=== PATIENT | male | born 1980 | race Caucasian/White ===

== ENCOUNTER 2022-02-03 09:11 | Emergency (ER) | payer BC, SELFPAY ==
--- NOTE | ~2022-02-03 | XR_ITS ---
EXAMINATION: XR tibia fibula LT 2V DATE: 02/03/2022 09:39 INDICATION: Left lower leg injury. TECHNIQUE: 2 views of left tibia and fibula on 4 radiographs were obtained. COMPARISON: None. FINDINGS: Bone alignment is normal. No fracture. There is mild osteoarthritis of medial and patellofe moral compartments of the knee. There is mild ankle joint osteoarthritis. There is an enthesophyte at posterior aspect of calcaneal tuberosity. No knee joint effusion. IMPRESSION: 1. Mild polyarticular osteoarthritis. Reviewed, dictated and finalized at location A.
[2022-02-03 09:20] VITALS: BP 124/80; PULSE 82; RESP 12; TEMP 36.8; O2SAT 100
--- NOTE | 2022-02-03 09:40 | ED.LOWEXIN ---
HPI - Extremity Injury (Lower) General Chief Complaint: Extremity Injury, Lower Stated Complaint: Left Leg Pain Time Seen by Provider: 02/03/22 09:40 Source: patient Mode of arrival: ambulatory Limitations: no limitations History of Present Illness HPI Narrative: 41-year-old male presented for complaint of left carrasquillo pain after injury 2 days ago. Endorses scabbed area with surrounding redness. He states he was on a float trip, cut his carrasquillo on a rock and now endorses pain with weightbearing. States he was unable to clean the site at the onset. Pain 5/10 at rest and 8/10 with ambulating. Last tetanus over 5 years. Related Data Allergies Allergy/AdvReac Type Severity Reaction Status Date / Time No Known Allergies Allergy Verified 02/03/22 09:39 Review of Systems Review of Systems: CONSTITUTIONAL: Denies body aches, fever, chills EYES: Denies visual changes CARDIOVASCULAR: Denies chest pain RESPIRATORY: Denies cough or dyspnea. GASTROINTESTINAL: Denies abdominal pain, nausea, vomiting, or diarrhea. SKIN: Reports wound left carrasquillo MUSCULOSKELETAL: Denies back pain, joint pain, or myalgia. NEUROLOGIC: Denies headache, numbness, tingling, or weakness. All systems reviewed & are unremarkable except as noted in HPI and below PMFSH Family History Family History Other Diabetes mellitus Family history of cardiovascular disease Family history of malignant neoplasm Hypertension Social History Social History Smoking status: Never smoker Alcohol intake: current Comments At time of signature, I have reviewed and agree with nursing past medical, surgical, social and family history unless otherwise noted. Please see nursing chart for further information. There is no relevant family history pertinent to the presenting complaint Exam Narrative: GENERAL: Well-appearing CHEST: No respiratory distress. HEART: Regular rate and rhythm. Normal and equal peripheral pulses. EXTREMITIES: Left anterior carrasquillo with scabbed abrasion approx 1cmx0.5cm and surrounding mild erythema and warmth approx 9cm diameter. Tender to palpation. No fluctuance, drainage, or induration. Left LE has normal strength and sensation, normal range of motion at knee. No obvious deformity; pulse palpable and equal bilaterally, skin warm, dry, pink. Capillary refill less than 3 seconds. SKIN: Warm, dry, no rash. NEURO: Alert and oriented x3. PSYCH: Normal mood and affect Course Course Emergency Course: Patient is aware of diagnosis, understands and agrees to treatment plan. Anticipatory guidance given. Patient agrees to follow-up as directed and is aware of reasons to seek care at the emergency department. Portions of this record may have been created with voice recognition software Level of Care: Express Care Visit Vital Signs Vital signs: Vital Signs Temperature 98.3 F 02/03/22 09:20 Pulse Rate 82 02/03/22 09:20 Respiratory Rate 12 02/03/22 09:20 Blood Pressure 124/80 02/03/22 09:20 Pulse Oximetry 100 02/03/22 09:20 Temperature 98.3 F 02/03/22 09:20 Pulse Rate 82 02/03/22 09:20 Respiratory Rate 12 02/03/22 09:20 Blood Pressure 124/80 02/03/22 09:20 Pulse Oximetry 100 02/03/22 09:20 Reviewed MDM - Extremity Injury (Lower) MDM Narrative Medical decision making narrative: Xray results reviewed with pt. No fracture. Tetanus updated. Advised supportive measures and signs/symptoms to go to the ER. Pt is appropriate for outpt treatment and f/u. Differential Diagnosis Differential diagnosis: Likely other (cellulitis, abrasion, contusion, laceration, tib/fib fracture) Imaging Data Radiologist's impression: Ordering Physician: Shawna Shrestha APRN Date of Service: 02/03/22 Procedure(s): XR tibia fibula LT 2V Accession Number(s): [id number] cc: Shawna Shrestha APRN; Mike Winslow MD~
[2022-02-03] MEDS: TETANUS,DIPHTHERIA,AC PERTUSSIS ADULT (0.5 ML) BOOSTRIX IM (10:00)
== END 2022-02-03 10:15 | disposition home or self-care (01) ==
PROVIDERS: Emergency Provider Nurse Practitioner Family; PCP Family Medicine
DX: L03.116 Cellulitis of left lower limb (principal); S80.812A Abrasion, left lower leg, initial encounter; W45.8XXA Other foreign body or object entering through skin, initial encounter; Z23 Encounter for immunization
CPT/HCPCS: 73590; 90471; 90715; 99213; G0463

== ENCOUNTER 2023-05-14 18:14 | Emergency (ER) | payer BC, SELFPAY ==
--- NOTE | ~2023-05-14 | XR_ITS ---
EXAMINATION: XR knee LT min 4V DATE: 05/14/2023 19:06 INDICATION: Left knee pain TECHNIQUE: Four views of the left knee were obtained. COMPARISON: 02/03/2022 FINDINGS: Alignment is normal. No fracture or osteochondral lesion. Joint spaces are normal with no e rosions. No joint effusion/synovitis. There is infrapatellar soft tissue swelling of the knee. IMPRESSION: 1. No acute osseous abnormality. Reviewed, dictated and finalized at location F.
[2023-05-14 18:46] VITALS: BP 132/85; PULSE 80; RESP 18; TEMP 36.9; O2SAT 99
--- NOTE | 2023-05-14 18:52 | ED.LOWEXIN ---
HPI - Extremity Injury (Lower) General Chief Complaint: Extremity Injury, Lower Stated Complaint: Left Leg Irritation Time Seen by Provider: 05/14/23 19:12 Source: patient and RN notes reviewed Mode of arrival: ambulatory Limitations: no limitations History of Present Illness HPI Narrative: 43-year-old male presents with concern for injury to the left lower leg. Reports about a week and half ago he had a hockey puck hit his leg. Reports it was swollen and bruised, had an area of open skin. Reports the swelling and bruising have improved, but he still has pain. He reports a scab. Reports he has been using ice, ibuprofen. MD complaint: leg injury Related Data Allergies Allergy/AdvReac Type Severity Reaction Status Date / Time No Known Allergies Allergy Verified 05/14/23 18:42 Review of Systems Review of Systems: CONSTITUTIONAL: Denies malaise, chills, sweats, or fever. SKIN: Denies rash or itching, open skin, laceration, abrasion, redness, warmth, swelling. MUSCULOSKELETAL: Reports left anterior lower leg pain NEUROLOGIC: Denies numbness, weakness All systems reviewed & are unremarkable except as noted in HPI and below PMFSH Family History Family History Other Diabetes mellitus Family history of cardiovascular disease Family history of malignant neoplasm Hypertension Social History Social History Smoking status: Never smoker Alcohol intake: current Comments At time of signature, agree with nursing past medical, surgical, social and family history. There is no relevant family history pertinent to the presenting complaint Exam Narrative: GENERAL: Well-appearing, well-nourished, and in no acute distress. HEAD: Normocephalic, atraumatic. EYES: PERRLA, conjunctivae clear NECK: Supple. CHEST: Speaks in full sentences. No respiratory distress. HEART: Regular rate and rhythm. Normal and equal peripheral pulses. EXTREMITIES: Left lower extremity has grossly normal strength and sensation, normal range of motion. No edema or ecchymosis. Normal sensation with sensitivity to light touch and pain. Tenderness below the knee. Scab noted below the knee without surrounding erythema, edema, induration, no skin tenting, no devitalized tissue or atrophy, no trophic changes, no obvious deformity, alignment normal, nearby joints and structures intact. Distal pulses palpable and equal bilaterally, skin warm, dry, pink. Capillary refill less than 3 seconds. SKIN: Warm, dry, no rash. NEURO: Alert and oriented x3. PSYCH: Normal mood and affect Course Course Emergency Course: Patient is aware of diagnosis, understands and agrees to treatment plan. Anticipatory guidance given. Patient agrees to follow-up as directed and is aware of reasons to seek care at the emergency department. Portions of this record may have been created with voice recognition software Level of Care: Express Care Visit Vital Signs Vital signs: Vital Signs Temperature 98.4 F 05/14/23 18:46 Pulse Rate 80 05/14/23 18:46 Respiratory Rate 18 05/14/23 18:46 Blood Pressure 132/85 05/14/23 18:46 Pulse Oximetry 99 05/14/23 18:46 Oxygen Delivery Room Air 05/14/23 18:46 Temperature 98.4 F 05/14/23 18:46 Pulse Rate 80 05/14/23 18:46 Respiratory Rate 18 05/14/23 18:46 Blood Pressure 132/85 05/14/23 18:46 Pulse Oximetry 99 05/14/23 18:46 Oxygen Delivery Room Air 05/14/23 18:46 Reviewed. MDM - Extremity Injury (Lower) MDM Narrative Medical decision making narrative: Patients injury and pain is consistent with musculoskeletal etiology. No signs of neurological or vascular compromise on exam. Compartments and tissues are soft without signs of compartment syndrome. Pain is felt appropriate for further evaluation on an outpatient basis. Imaging Data My impression: Images reviewed, interpreted by olga
== END 2023-05-14 19:36 | disposition home or self-care (01) ==
PROVIDERS: Emergency Provider Nurse Practitioner; PCP Family Medicine
DX: S80.12XA Contusion of left lower leg, initial encounter (principal); W20.8XXA Other cause of strike by thrown, projected or falling object, initial encounter
CPT/HCPCS: 73564; 99213; G0463

== ENCOUNTER 2024-12-23 12:57 | Outpatient (CLI) | payer BC, SELFPAY ==
--- OUTSIDE RECORDS SUMMARY | 2024-12-23 12:59 | XMS_ITS | Clinical Summary ---
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 Gender Identity Not on file Sexual Orientation Not on file Plan of Treatment Health Maintenance Due Date Last Done Comments Hepatitis C Virus (HCV) Screening 1982 TdaP Immunization 1982 Hepatitis B Immunization (1 of 3 - 19+ 3-dose series) 2001 Influenza Immunization (#1) 2024 SARS-COV-2 Immunization (3 - 2023-25 season) 2024 03/26/2021, 03/05/2021 Respiratory Syncytial Virus (RSV) Immunization (Adult) (1 - 1-dose 75+ series) 2057 DTaP/Tdap/Td Immunization Discontinued 1995, 03/14/1986, 12/27/1983, Additional history exists Meningococcal Immunization (ACWY) Aged Out No longer eligible based on patient's age to complete this topic Pneumococcal Immunization Combined Aged Out No longer eligible based on patient's age to complete this topic Rotavirus Immunization Aged Out No lo nger eligible based on patient's age to complete this topic
--- OUTSIDE RECORDS SUMMARY | 2024-12-23 12:59 | XMS_ITS | Encounter Summary ---
Author Organization [facility] [address] [place] [address] Care Team Providers Care Supervisor Correspondence Section Name Role Phone Unavailable Primary Care Provider Unavailabl e Reason for Visit * Reason Onset Date Comments Medication Issue 01/31/2020 back order solu mirella wants to see if we change suspension Encounter Details Date Type Department Care Team (Late st Contact Info) Description 01/31/2020 Telephone [facility] [address], [address] [place] [address] Provider, Jairon Richardson [facility] Medication Issue (back order solution wants to see if we change suspension) Social History Tobacco Use Types Packs/Day Years Used Date Smoking Tobacco: Never Smokeless Tobacco: Never Sex and Gender Information Value Date Recorded Sex Assigned at Not on file Legal Sex Male 12:59 PM CDT Gender Identity Not on file Sexual Orientation Not on file COVID-19 Exposure Response Date Recorded In the last month, have you been in contact with someone who was confirmed or suspected to have Coronavirus / COVID-19? No / Unsure 01/31/2020 2:52 PM CDT documented as of this encounter Miscellaneous Notes * Telephone Encounter - Lorna Bird - 01/31/2020 4:06 PM CDT Who is calling? Annmarie If other than self is caller listed on the HIPAA? no If caller is anyone other than listed above, where are they calling from? [facility] What is the reason for call? Out of stock of solution can they switch to suspension? Expected Response from the Clinic? Call back documented in this encounter Plan of Treatment Not on file documented as of this encounter Visit Diagnoses Not on filedocumented in this encounter
--- OUTSIDE RECORDS SUMMARY | 2024-12-23 12:59 | XMS_ITS | Clinical Summary ---
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 This disclosure is being madepursuant to the Care Everywhere program and may not contain all information available regarding this patient. Last updated 18.[facility] [employer] Allergies No known active allergies Medications * Be aware that medications may not be up to date on this document. Alwaysverify current medications with the patient. No known medications Social History Tobacco Use Types Packs/Day Years Used Date Smoking Tobacco: Never Smokeless Tobacco: Never Sex and Gender Information Value Date Recorded Sex Assigned at Not on file Legal Sex Male 12:59 PM CDT Gender Identity Not on file Sexual Orientation Not on file Last Filed Vital Signs Vital Sign Reading Time Taken Comments Blood Pressure 128/80 01/31/2020 3:03 PM CDT Pulse 80 01/31/2020 3:03 PM CDT Temperature 36.9 C (98.5 F) 01/31/2020 3:03 PM CDT Respiratory Rate 18 01/31/2020 3:03 PM CDT Oxygen Saturation - - Inhaled Oxygen Concentration - - Weight 99.8 kg (220 lb) 01/31/2020 3:03 PM CDT Height 182.9 cm (6') 01/31/2020 3:03 PM CDT Body Mass Index 29.84 01/31/2020 3:03 PM CDT Plan of Treatment Health Maintenance Due Date Last Done Comments LIPID TESTING 1982 HIV SCREENING 1997 HEPATITIS C SCREENING 03/19/2000 DTAP/TDAP/TD VACCINES (1 - Tdap) 2001 HEPATITIS B VACCINE (1 of 3 - 19+ 3-dose series) 2001 COVID-19 VACCINE (1 - 2023-2 5 season) 2024 DEPRESSION SCREENING 07/20/2024 INFLUENZA VACCINE (Season Ended) 2025 ZOSTER VACCINE (1 of 2) 2032 HIB VACCINE Aged Out No longer eligi ble based on patient's age to complete this topic HPV VACCINE Aged Out No longer eligi ble based on patient's age to complete this topic MENINGOCOCCAL (Group B) VACC INE SHARED DECISION-MAKING Aged Out No longer eligibl e based on patient's age to complete this topic MENINGOCOCCAL GROUPS A/C/Y/W VACCINE Aged Out No longer eligible b ased on patient's age to complete this topic PNEUMOCOCCAL VACCINE Aged Out No long er eligible based on patient's age to complete this topic Insurance [facility]
== END 2024-12-23 12:58 | disposition home or self-care (01) ==
LOC: ANHAUDIO 12:58
PROVIDERS: PCP Family Medicine
DX: H90.3 Sensorineural hearing loss, bilateral (principal); H93.8X9 Other specified disorders of ear, unspecified ear
CPT/HCPCS: 92557; 92567